=== PATIENT | female | born 1945 | race Caucasian/White ===

== ENCOUNTER 2021-09-22 14:31 | Emergency (ER) | payer MEDICARE, SELFPAY ==
[2021-09-22 14:34] VITALS: BP 150/61; PULSE 65; RESP 16; TEMP 37.1; O2SAT 98
--- NOTE | 2021-09-22 14:37 | ED.EAR ---
HPI - Ear Problem General Chief complaint: Ear Stated complaint: Sinus Pain/Ear Pain Time Seen by Provider: 09/22/21 14:37 Source: patient and RN notes reviewed History of Present Illness HPI Narrative: Patient is a 76-year-old female who presents the urgent care with complaints of sinus pain and pressure with left ear pain. Patient states is all on the left side and she does have recurrent sinusitis. Patient states she has seen an ENT who told him she is just allergic to a lot of of pollen and mold . Patient does take a daily Claritin and has been using Benadryl intermittently. Patient states her symptoms have only been for the last 2 days and denies of any fevers or other upper respiratory complaints. No acute distress noted. Patient aware of the plan of care. Some parts of this dictation were generated by voice recognition software and may contain typographical and/or grammatical inaccuracies. Related Data Home Medications Medication Instructions Recorded Confirmed amlodipine 5 mg tablet 5 mg PO DAILY 09/22/21 09/22/21 atorvastatin 20 mg tablet 20 mg PO DAILY 09/22/21 09/22/21 glimepiride 2 mg tablet 2 mg PO DAILY 09/22/21 09/22/21 hydrochlorothiazide 25 mg tablet 25 mg PO DAILY 09/22/21 09/22/21 levothyroxine 50 mcg tablet See Rx Instructions .Route .COMPLEX 09/22/21 09/22/21 metformin 500 mg tablet 500 mg PO DAILY 09/22/21 09/22/21 Allergies Allergy/AdvReac Type Severity Reaction Status Date / Time No Known Allergies Allergy Verified 09/22/21 14:46 Review of Systems Review of Systems: CONSTITUTIONAL: Denies fever, chills, or sweats. EYES: Denies visual changes, redness, or discharge. ENT: Reports of left-sided sinus pressure, left otalgia, sinus congestion CARDIOVASCULAR: Denies chest pain, palpitations, or edema. RESPIRATORY: Denies cough or dyspnea. GASTROINTESTINAL: Denies abdominal pain, nausea, vomiting, or diarrhea. GENITOURINARY: Denies dysuria or hematuria. SKIN: Denies rash or itching. MUSCULOSKELETAL: Denies back pain, joint pain, or myalgia. NEUROLOGIC: Denies headache, numbness, or weakness. All other systems reviewed are negative, except as documented in HPI. [facility] Family History Family History (System 12/13/20 @ 07:26 by Jackson Hinojosa) Other Cerebrovascular accident Family history of arthritis Family history of cardiovascular disease Family history of congestive heart failure Family history of thyroid disease Hypertension Social History Social History (System 12/13/20 @ 07:26 by Jackson Hinojosa) Smoking status: Never smoker Alcohol intake: never Comments At the time of my signature, I reviewed and agree with the nursing past medical, surgical, social, and family history. There is no relevant family history pertinent to the patient complaint. Exam Narrative: GENERAL: This is a well-nourished, well-developed patient, in no apparent distress. HEAD: normocephalic, atraumatic. Frontal left sinus tenderness EYES: PERRL. Sclera clear/white. Vision is grossly intact. EARS: External ears normal, auditory canals clear and without drainage, TMs normal without perforation. Hearing grossly intact. NOSE: External nose normal with no obvious nasal discharge, nares without redness, clear to yellow rhinorrhea. THROAT: Mucous membranes moist, posterior pharynx clear. Moderate postnasal drainage NECK: Neck supple CARDIOVASCULAR: Regular rate and rhythm without murmurs, gallops, or rubs. RESPIRATORY: Clear to auscultation. Breath sounds equal bilaterally. No wheezes, rales, or rhonchi. SKIN: warm, intact with no suspicious lesions or rash, good texture and turgor. NEURO: awake, alert, and oriented to person, place and time. There were no obvious focal neurologic abnormalities. EXTREMITIES: No clubbing, cyanosis, or edema. Course Course Level of Care: Express Care Visit Vital Signs Vital signs: Vital Signs Temperature 98.8 F 09/22/21 14:34 Pulse Rate 65 09/22/21 14:34 Respiratory R
== END 2021-09-22 15:07 | disposition home or self-care (01) ==
PROVIDERS: Emergency Provider Nurse Practitioner Family; PCP Internal Medicine
DX: J32.9 Chronic sinusitis, unspecified (principal); E78.00 Pure hypercholesterolemia, unspecified; I10 Essential (primary) hypertension; E11.9 Type 2 diabetes mellitus without complications; E03.9 Hypothyroidism, unspecified; Z95.828 Presence of other vascular implants and grafts
CPT/HCPCS: 99203; G0463